=== PATIENT | female | born 1990 | race Caucasian/White ===

== ENCOUNTER 2022-12-11 12:00 | Emergency (ER) | payer MEDICARE, MEDICAID, SELFPAY ==
--- NOTE | 2022-12-11 12:08 | ED.BACK ---
HPI - Back Pain/Injury General Chief Complaint: Back Pain/Injury Stated Complaint: Lower Back Pain Time Seen by Provider: 12/11/22 13:11 Source: patient and RN notes reviewed Mode of arrival: ambulatory Limitations: no limitations History of Present Illness HPI Narrative: 32-year-old female presents with concern for low back pain. He she reports in October she was lifting when she hurt her back. She was seen at urgent care and was given anti-inflammatories and muscle relaxers. Reports she had improvement in the pain, however the pain has returned. She reports or she has been taking anti-inflammatories with little relief. She report she has been seeing a chiropractor, reports however her pain seems worse after she gets adjusted. He denies loss of bowel or bladder function, denies perianal anesthesia, weakness in any extremity. She denies abdominal pain. Reports pain is worsened by certain movements, she can find position of comfort occasionally in bed. She reports last night she had pain that shot down her right leg MD elicited complaint: back pain Related Data Home Medications Medication Instructions Recorded Confirmed clindamycin phosphate 1 % topical 1 applic topical BID 12/11/22 12/11/22 gel doxycycline hyclate 50 mg capsule 50 mg PO DAILY 12/11/22 12/11/22 fluticasone propionate 50 50 mcg intranasal DAILY 12/11/22 12/11/22 mcg/actuation nasal spray,suspension levocetirizine 5 mg tablet 5 mg PO DAILY 12/11/22 12/11/22 Allergies Allergy/AdvReac Type Severity Reaction Status Date / Time amoxicillin Allergy Mild Hives Verified 12/11/22 12:31 Review of Systems Review of Systems: CONSTITUTIONAL: Denies malaise, chills, sweats, or fever. CARDIOVASCULAR: Denies chest pain, palpitations, or edema. RESPIRATORY: Denies cough or dyspnea. GASTROINTESTINAL: Denies abdominal pain, nausea, vomiting, diarrhea, loss of bowel function GENITOURINARY: Denies dysuria, hematuria, frequency, loss of bladder function. SKIN: Denies rash or itching. MUSCULOSKELETAL: Reports central low back pain with pain radiating down the right leg NEUROLOGIC: Denies numbness, weakness, or headache. All systems reviewed & are unremarkable except as noted in HPI and below PMFSH Comments At time of signature, agree with nursing past medical, surgical, social and family history. There is no relevant family history pertinent to the presenting complaint Exam Narrative: GENERAL: Well-appearing, well-nourished, and in no acute distress. HEAD: Normocephalic, atraumatic. EYES: PERRLA and EOMI. NECK: Supple. No lymphadenopathy. CHEST: Clear to auscultation. No respiratory distress. HEART: Regular rate and rhythm. Distal pulses palpable and equal, cap refill <3 seconds ABDOMEN: Soft, nontender, nondistended, normal active bowel sounds, no palpable or pulsatile masses. No CVA tenderness MUSCULOSKELETAL: Normal range of motion and strength in all extremities; 5/5 strength with hip flexion and extension, dorsiflexion and extension, knee flexion and extension, plantar flexion and extension. Normal sensation in dermatomal distributions with sensitivity to light touch and pain. Midline back tenderness to palpation. No paraspinal tenderness. Transfers from sitting to standing. SKIN: Warm, dry, no rash. No ecchymosis, erythema, open wounds to back. NEURO: No focal deficits. Alert and oriented x3. Reflexes intact. Normal gait. PSYCH: Normal mood and affect Course Course Emergency Course: Advised patient to avoid getting adjusted by the chiropractor until she is able to give more definitive imaging, she was instructed to call primary care doctor for an appointment. Patient is aware of diagnosis, understands and agrees to treatment plan. Anticipatory guidance given. Patient agrees to follow-up as directed and is aware of reasons to seek care at the emergency department. Portions of this record may have been created with voice recognition software Level
[2022-12-11 12:13] VITALS: BP 113/74; PULSE 106; RESP 16; TEMP 37.2; O2SAT 99
== END 2022-12-11 13:26 | disposition home or self-care (01) ==
PROVIDERS: Emergency Provider Nurse Practitioner; PCP Family Medicine
DX: M54.50 Low back pain, unspecified (principal); N80.9 Endometriosis, unspecified
CPT/HCPCS: 99203; G0463

== ENCOUNTER 2022-12-28 15:18 | Outpatient (CLI) | payer MEDICARE, MEDICAID, SELFPAY ==
--- NOTE | ~2022-12-28 | XR_ITS ---
XR lumbar spine 2-3V 12/28/2022 15:44 Indication: Low back pain Procedure: 3 views lumbar spine Comparison: No prior studies for comparison. Findings: Vertebral body and disc heights are preserved. No fracture, subluxation or dislocation. No evidence for spondylolisthesis. Pedicles intact. Sacral foramen are symmetric. There is an IUD presen t. Impression: 1: No significant abnormality of the lumbar spine. Reviewed, dictated and finalized at location [] Impression: 1: No significant abnormality of the lumbar spine.
== END 2022-12-28 15:19 | disposition home or self-care (01) ==
PROVIDERS: PCP Family Medicine; Visit Provider Family Medicine
DX: M54.50 Low back pain, unspecified (principal)
CPT/HCPCS: 72100

== ENCOUNTER 2023-03-16 13:03 | Outpatient (CLI) | payer OTHER, SELFPAY ==
[2023-03-16 13:40] LABS: Hematocrit 40.8 % (37.0-47.0); Hemoglobin 13.7 g/dL (12.0-15.0); Mean Corpuscular HGB Conc 33.6 g/dl (32-36); Mean Corpuscular Hemoglobin 30.4 pg (26-34); Mean Corpuscular Volume 90.7 fl (80-100); Mean Platelet Volume 10.7 fl (7.4-10.4); Platelet Count Result 251 k/mm3 (150-375); Red Cell Distribution Width 12.4 % (11.5-14.5); White Blood Count 8.1 K/mm3 (4.5-10.0)
== END 2023-03-16 13:04 | disposition home or self-care (01) ==
PROVIDERS: PCP Family Medicine; Visit Provider Obstetrics & Gynecology
DX: N80.9 Endometriosis, unspecified (principal); Z01.818 Encounter for other preprocedural examination
CPT/HCPCS: 36415; 85027; 86850; 86900; 86901

== ENCOUNTER 2023-03-18 03:16 | Day surgery (SDC) | payer OTHER, SELFPAY ==
[2023-03-09 12:35] VITALS: BMI 23.4
--- NOTE | 2023-03-09 12:41 | PC.NURSE ---
Report to the Outpatient Waiting Room, entrance under the green pavilion located off [facility], at time 6:00 on date 03/18/23. Planned Procedure Time: 7:30. Time changes happen often and if your time is changed the preop area will call you the afternoon before. - You and your visitor will be asked to self-screen and do not enter if you have any COVID symptoms. - A mask is optional within the hospital at this time. Patients may have clear liquids (water, carbonated beverages, clear teas, apple juice) until 3 hours prior to surgery (4:30) with a maximum of 20 ounces. - No food from midnight until time of surgery Take the following medications with a SIP of water the morning of surgery: N/A DO NOT STOP ANY OF YOUR OTHER PRESCRIPTION MEDICATIONS PRIOR TO SURGERY ?EXCEPT THE FOLLOWING Medications to discontinue per physician: N/A Date to take last dose: N/A Please no make-up, nail german, hairspray, perfume, deodorant, or body powder the day of surgery. No jewelry (including any body piercings) or valuables the day of surgery, leave them at home. Please take a shower or bath the night before, or the morning of, surgery with an antibacterial soap. Wear comfortable, loose fitting clothing. - Jewelry must be removed prior to entering the operating room. Rings and piercings that are not removed may be cut off. - The hospital will not accept responsibility for valuables. - Please leave all valuables, including medications, at home the day of surgery. If you are going home after surgery, a licensed driver's education instructor must drive you home. - NO public transportation without another adult if you receive anesthesia. - We recommend that an adult stay with you for 24 hours following discharge. - We also recommend that you do not drive, make important decision, drink alcoholic beverages, or take any drugs that were not prescribed by your health care provider for at least 24 hours after your discharge time. Follow any additional instructions given to you from your surgeon. If you or anyone in your household have experienced Covid symptoms in the past week, please notify your surgeon or the nurse liaison at the phone number below for possible testing. Telephone instructions given to PT - TERRENCE DYE and asked if any additional questions and then verbalized understanding. Patient advised to call surgeon office or pre surgery nurse liaison [phone] if any additional questions.
--- NOTE | 2023-03-17 09:57 | PM.IMHP ---
H&P: HPI History of Present Illness Date/Time: 03/17/23 09:57 33-year-old female presents with complaints of irregular menstrual cycles well as pelvic pain. Has been diagnosed with endometriosis in the past, been on multiple hormonal regimens none of which have helped significantly and her pain and discomfort has been increasing over the past few months, to the point now where she cannot perform her normal daily activities due to the pain. She is bleeding intermittently but this is not a significant issue for her as opposed to the pelvic pain that she has been having. Also she has pain on the right side as well as midline, no specific discomfort on the left. Ultrasound has been performed which reveals no specific abnormalities with an IUD present in the uterine cavity. Chief Complaint: Pelvic pain Review of Systems Review of Systems: All systems reviewed & are unremarkable except as noted in HPI and below PMFSH Past Medical History Medical History Anxiety and depression Endometriosis Ovarian cyst Surgical History Surgical History History of gynecological procedure (10/03/21) mirena iud removal and insertion History of gynecological procedure (04/2012) mirena iud insertion History of laparotomy exploration of pelvis History of tonsillectomy [place] teeth removed Family History Family History Other Depression family hx Social History Social History Years smoked: 1 Smoking status: Former smoker Tobacco type: cigarettes Smoking end date: 07/12/12 Alcohol intake: never Substance use: never Substance use type: does not use Lack of Transportation: No Lack of Food: Sometimes True Current Housing: I Have Housing Concerned About Future Housing: No Difficulty Paying Gas/Electric Bills: No Difficulty Paying for Meds: No Currently Unemployed: No Education: High School Diploma/GED Difficulty w/ Childcare or Family Care: No Living arrangements: with family Additional living arrangements comments: single Occupation/Education: unemployed Additional occupation/education comments: disabled Gender identity (if verbalized by the patient): Female Sexual Orientation (if Verbalized by the Patient): Straight or Heterosexual Spiritual care concerns: No Meds Home Medications and Allergies Home Medications Medication Instructions Recorded Confirmed Type levonorgestrel 21 mcg/24 hours (8 1 device intrauterine ONCE 01/18/23 03/09/23 History yrs) 52 mg intrauterine device (Mirena) Allergies Allergy/AdvReac Type Severity Reaction Status Date / Time amoxicillin Allergy Mild Hives Verified 03/09/23 12:35 Exam Const: General: cooperative, healthy appearing and comfortable Resp: Effort & Inspection: normal respiratory effort Auscultation: clear to auscultation bilaterally Cardio: Rate: regular rate Rhythm: regular rhythm GI: Inspection: normal to inspection Auscultation: normal bowel sounds : External Female Exam: normal external appearance Speculum Exam - Vagina: normal appearance of the vagina Speculum Exam - Cervix: normal appearance of the cervix Bimanual exam- vagina & uterus: Uterine tenderness Bimanual Exam- Adnexa, other: tender (Right tender/left nontender) Assessment and Plan Assessment and plan (1) Pelvic pain: Code(s): R10.2 - Pelvic and perineal pain Status: Acute (2) Endometriosis: Code(s): N80.9 - Endometriosis, unspecified Status: Acute (3) Irregular bleeding: Code(s): N92.6 - Irregular menstruation, unspecified Status: Acute (4) Right adnexal tenderness: Code(s): R10.2 - Pelvic and perineal pain Status: Acute Plan 1. Robot assisted laparoscopic hyster
[2023-03-18] VITALS (10 sets, daily range): BP systolic 104–131; BP diastolic 62–99; PULSE 61–96; RESP 12–18; TEMP 36.3–37.4; O2SAT 97–100
[2023-03-18] MEDS: ACETAMINOPHEN 500 MG TABLET 1000 MG PO (06:11)
[2023-03-18] MEDS: LACTATED RINGERS 1,000 ML 30 ML IV CONT ×2 (06:25→09:09)
[2023-03-18] MEDS: KETOROLAC 15 MG/ML VIAL (*BKC) IV PUSH (06:52)
--- NOTE | 2023-03-18 07:12 | WPDANESEPPF ---
Anes - Initial Pre Proc Eval Procedure: Operation Date: 03/18/23 07:30 Proposed Procedures p Robotic Assisted Total Laparoscopic Hysterectomy with Bilateral Salpingectomy - Maykel Guevara MD Date/Time: 03/18/23 07:12 Surgeon: Maykel Guevara MD Pre Op Diagnosis: pelvic pain, endometriosis Patient Data Age: 33 Gender: F Height: 1.68 m Weight: 64.8 kg Last Vital Signs Temp 37.0 C 03/18/23 06:44 Pulse 83 03/18/23 06:44 Resp 16 03/18/23 06:44 BP 115/65 03/18/23 06:44 Pulse Ox 98 03/18/23 06:44 O2 Del Method Room Air 03/18/23 06:44 Allergies Allergy/AdvReac Type Severity Reaction Status Date / Time amoxicillin Allergy Mild Hives Verified 03/18/23 06:09 Home Medications Medication Instructions Recorded Confirmed Type levonorgestrel 21 mcg/24 hours (8 1 device intrauterine ONCE 01/18/23 03/09/23 History yrs) 52 mg intrauterine device (Mirena) Patient hx anesthesia problems: none Family hx anesthesia problems: none Results Review: All pre-operative results and documents have been reviewed as part of the pre-operative evaluation. [facility] Past Medical History Medical History Anxiety and depression Endometriosis Ovarian cyst Surgical History Surgical History History of gynecological procedure (10/03/21) mirena iud removal and insertion History of gynecological procedure (04/2012) mirena iud insertion History of laparotomy exploration of pelvis History of tonsillectomy [place] teeth removed Family History Family History Other Depression family hx Social History Social History Years smoked: 1 Smoking status: Former smoker Tobacco type: cigarettes Smoking end date: 07/12/12 Alcohol intake: never Substance use: never Substance use type: does not use Lack of Transportation: No Lack of Food: Sometimes True Current Housing: I Have Housing Concerned About Future Housing: No Difficulty Paying Gas/Electric Bills: No Difficulty Paying for Meds: No Currently Unemployed: No Education: High School Diploma/GED Difficulty w/ Childcare or Family Care: No Living arrangements: with family Additional living arrangements comments: single Occupation/Education: unemployed Additional occupation/education comments: disabled Gender identity (if verbalized by the patient): Female Sexual Orientation (if Verbalized by the Patient): Straight or Heterosexual Spiritual care concerns: No Anes - Eval Final PreProcedure Day of Procedure 03/18/23 07:12 Patient weight: normal Heart: regular rate and rhythm Lungs: clear to auscultation Airway: Mallampati scale class II Neurological: alert and oriented Last oral intake: >/= 8 hours ASA classification: II Emergent: no Anesthetic plan: proceed Anesthesia type and monitoring: general ETT and standard monitoring Results Review: All pre-operative results and documents have been reviewed as part of the pre-operative evaluation. Informed Consent: The patient's anesthetic plan and its attendant risks and benefits were discussed with the patient/family/POA. Questions were solicited and answers provided to the satisfaction of the patient/family/POA.
--- NOTE | 2023-03-18 07:23 | WPDHPUPDATE1 ---
History and Physical Update Update Date/Time: 03/18/23 07:23 History and Physical has been reviewed, including an updated exam of the patient. There are NO changes in the patient's condition. Risks, benefits, and alternatives have been discussed and questions answered. Patient agrees to proceed with procedure.
[2023-03-18] MEDS: ceFAZolin 2 GM/D5W 50 ML 2 GM/50 ML BAG IVPB (07:28)
--- NOTE | 2023-03-18 08:47 | P.OP_ITS ---
Procedure Note - Detailed Date of Procedure 03/18/23 Pre-op Diagnosis pelvic pain, endometriosis Post-op Diagnosis Same Procedure Performed 1. Robotic assisted laparoscopic total hysterectomy 2. Right salpingo oophorectomy 3. Left salpingectomy Surgeon Maykel Guevara MD Anesthesia General Findings 1. Uterus enlarged and globular and hypervascular consistent with adenomyosis 2. Right lateral wall endometriosis Description of Procedure Patient prepped and draped in usual manner for this procedure. Cervical instruments were placed for uterine mobility throughout the case. Attention was then placed to the abdomen all the trocars were placed under direct v isualization. De Juan Manuel system was attached and instruments were placed again under direct visualization. Surgeon moved to the console and findings were noted as above. Right infant 0 pelvic ligament was cauterized and cut to release the ovary from the pelvic sidewall. Left mesial salpinx was then cauterized and cut and the left tube was removed separately. Right infundibulopelvic ligament was cauterized and cut to release the ovary from the uterus, and round ligament bilaterally cauterized and cut and bladder flap developed without difficulty. Uterine vessels were then skeletonized and c auterized and cut. Anterior colpotomy incision was made this was carried circumferentially to release the cervix from the vagina and the uterus right tube and ovary were then delivered into the vagina. V lock suture was then used to approximate the vaginal cuff from the right angle to the midline and then from the left angle midline with good approximation hemostasis noted. There was no significant bleeding the patient was then sent to recovery room in stable condition after trocars removed and incisions approximated using 4-0 Monocryl. Estimated Blood Loss 100 Drains No Packing No Pathology Yes Complications No immediate complications Condition Stable Disposition PACU [facility] Billing Surgery - Charge Forward: Surgery Billing
[2023-03-18] MEDS: fentaNYL CITRATE INJ (*CRX) 100 MCG/2 ML VIAL 25 MCG IV PUSH ×8 (09:19→10:17)
--- NOTE | 2023-03-18 10:40 | ADMGEN ---
This patient, Peg Eastman, was admitted to OB 2nd Floor Room 289-00. Patient/family oriented to hospital policies and general routines including ID bracelet, bed and alarms, visiting hours, pain management, procedures, bathroom and other care routines, personal items, smoking policy, room service/diet, and visiting hours. Information on how to activate the Rapid Response Team has been discussed. Patient/Family are encouraged to report perceived risks to care and to ask questions if they do not understand what they are told or what they should do.
[2023-03-18] MEDS: KETOROLAC 30 MG/ML VIAL (*BKC) IV PUSH (11:03)
[2023-03-18] MEDS: DEXTROSE 5%/0.45% SOD CHL 1,000 ML 125 ML IV CONT (11:03)
[2023-03-18] MEDS: HYDROcodone/acetaminophen (*CRX) 5-325 MG TABLET 1 TAB PO (12:33)
[2023-03-18] MEDS: HYDROcodone/acetaminophen (*CRX) 10-325 MG TABLET 1 TAB PO ×2 (15:35→19:38)
[2023-03-18] MEDS: SIMETHICONE 80 MG TAB.CHEW PO ×2 (16:46→19:38)
[2023-03-18] MEDS: IBUPROFEN 600 MG TABLET PO (18:09)
[2023-03-18] MEDS: DOCUSATE SODIUM 100 MG CAPSULE PO (19:52)
[2023-03-19 01:00] VITALS: BP 95/56; PULSE 73; RESP 14; TEMP 37.1; O2SAT 95
[2023-03-19 05:20] VITALS: BP 93/55; PULSE 72; RESP 14; TEMP 37; O2SAT 99
[2023-03-19] MEDS: HYDROcodone/acetaminophen (*CRX) 10-325 MG TABLET 1 TAB PO ×2 (05:27→10:00)
[2023-03-19] MEDS: IBUPROFEN 600 MG TABLET PO (05:30)
[2023-03-19 05:42] LABS: Basophils Percent Auto 0.2 % (0.2-1.2); Hematocrit 35.3 % (37.0-47.0); Hemoglobin 11.9 g/dL (12.0-15.0); Immature Granulocyte Absolute 0.07 K/mm3 (0.00-0.031); Immature Granulocyte Percent A 0.5 % (0-0.5); Lymphocytes Absolute Auto 1.62 K/mm3 (0.9-3.2); Lymphocytes Percent Auto 10.4 % (18.3-44.2); Mean Corpuscular HGB Conc 33.7 g/dl (32-36); Mean Corpuscular Hemoglobin 30.5 pg (26-34); Mean Corpuscular Volume 90.5 fl (80-100); Mean Platelet Volume 11.3 fl (7.4-10.4); Monocytes Percent Auto 6.6 % (2.6-8.5); Neutrophils Absolute Auto 12.8 K/mm3 (1.3-6.7); Neutrophils Percent Auto 82.3 % (45.5-73.1); Platelet Count Result 208 k/mm3 (150-375); Red Cell Distribution Width 12.4 % (11.5-14.5); White Blood Count 15.5 K/mm3 (4.5-10.0)
[2023-03-19 08:05] VITALS: BP 104/54; PULSE 80; RESP 16; TEMP 37.3; O2SAT 98
--- NOTE | 2023-03-19 08:56 | WPDANESPN ---
Anes - Prog Note Post-Op Date/Time: 03/19/23 08:56 Cardiovascular status: other (hypotensive) Respiratory status: normal Airway patency: baseline Mental status: baseline Post-Op hydration status: normal Vital Signs: Last Vital Signs Temp 37.0 C 03/19/23 05:20 Pulse 72 03/19/23 05:20 Resp 14 03/19/23 05:20 BP 93/55 L 03/19/23 05:20 Pulse Ox 99 03/19/23 05:20 O2 Del Method Room Air 03/19/23 01:00 O2 Flow Rate 8 03/18/23 09:25 Pain Score (VAS): 2/10 Laboratory Tests 03/19/23 05:25 03/19/23 05:25 WBC 15.5 H RBC 3.90 L Hgb 11.9 L Hct 35.3 L MCV 90.5 MCH 30.5 MCHC 33.7 RDW 12.4 Plt Count 208 MPV 11.3 H Immature Gran % (Auto) 0.5 Neut % (Auto) 82.3 H Lymph % (Auto) 10.4 L [place] % (Auto) 6.6 Eos % (Auto) 0.0 Baso % (Auto) 0.2 Lymph # (Auto) 1.62 [place] # (Auto) 1.0 H Eos # (Auto) 0.0 Baso # (Auto) 0.0 Abs Immat Gran (auto) 0.07 H Absolute Neuts (auto) 12.8 H Absolute Nucleated RBC 0.0 Nucleated RBC % 0.0 Post-procedural complaints: none Patient Feedback: Patient satisfied with anesthetic care.
== END 2023-03-19 10:53 | disposition home or self-care (01) ==
LOC: ANHSURGERY 05:57 → ANHOB2 13:04
PROVIDERS: PCP Family Medicine; Visit Provider Obstetrics & Gynecology
PROC: (CPT 58571; principal; 2023-03-18 07:30)
DX: N80.351 Endometriosis of the right pelvic sidewall, unspecified depth (principal); N80.00 Endometriosis of the uterus, unspecified; R10.2 Pelvic and perineal pain; N80.03 Adenomyosis of the uterus; N92.6 Irregular menstruation, unspecified; Z87.891 Personal history of nicotine dependence
CPT/HCPCS: 58571; S2900; 36415; 85025; 88307; 99199; A9270; J0690; J1100; J1170; J1885; J2250; J2405; J2704; J3010; J7030; J7120

== ENCOUNTER 2023-03-25 17:36 | Emergency (ER) | payer OTHER, SELFPAY ==
[2023-03-25 17:47] VITALS: BP 117/71; PULSE 93; RESP 16; TEMP 37.3; O2SAT 100
[2023-03-25 17:48] VITALS: BP 117/71; PULSE 93; RESP 16; TEMP 37.3; O2SAT 100
--- NOTE | 2023-03-25 17:52 | ED.SKABFB ---
HPI - Skin/Abscess/Foreign Bdy General Chief complaint: Skin/Abscess/Foreign Body Stated complaint: skin irritation -stomach Time Seen by Provider: 03/25/23 17:37 Source: patient Mode of arrival: ambulatory Limitations: no limitations History of Present Illness HPI narrative: patient is a 33-year-old female who presents with redness and blisters around for surgical sites. Patient states she had hysterectomy 1 week ago and sites were closed with Dermabond. Patient started noticing redness on Wednesday and blisters appeared on Wednesday. Patient has called surgeon office and was told to try to pick off blue continues cortisone cream along with Neosporin. patient states redness has only grown and is also very tender to touch. Reports small amounts of drainage from wounds Related Data Allergies Allergy/AdvReac Type Severity Reaction Status Date / Time amoxicillin Allergy Mild Hives Verified 03/18/23 06:09 Review of Systems Review of Systems: All systems reviewed & are unremarkable except as noted in HPI and below Constitutional: Constitutional: Denies body ache(s), Denies chills, Denies fatigue, Denies fever(s), Denies headache(s), Denies malaise and Denies weakness Eyes: Eyes: Denies blurry vision, Denies irritation and Denies loss of vision ENT: Denies otalgia, Denies headache(s), Denies nasal discharge, Denies sinus pain and Denies sore throat Cardiovascular: Cardiovascular: Denies chest pain, Denies irregular heart rhythm and Denies dyspnea Respiratory: Respiratory: Denies dyspnea Gastrointestinal: Gastrointestinal: Denies abdominal pain, Denies melena, Denies hematochezia, Denies diarrhea, Denies nausea and Denies vomiting Musculoskeletal: Musculoskeletal: Denies back pain, Denies myalgias and Denies arthralgias Integumentary/Breasts: Skin/Breast: Denies pruritus, Reports erythema, Denies rash and Reports wounds Neurologic: Denies headache(s), Denies loss of vision and Denies weakness Psychiatric: Psychiatric: Reports no additional psychiatric complaints Endocrine: Endocrine: Denies fatigue PMFSH Past Medical History Medical History Anxiety and depression Endometriosis Ovarian cyst Surgical History Surgical History History of gynecological procedure (10/03/21) mirena iud removal and insertion History of gynecological procedure (04/2012) mirena iud insertion History of laparotomy exploration of pelvis History of tonsillectomy [place] teeth removed Family History Family History Other Depression family hx Social History Social History Years smoked: 1 Smoking status: Former smoker Tobacco type: cigarettes Smoking end date: 07/12/12 Alcohol intake: never Substance use: never Substance use type: does not use Lack of Transportation: No Lack of Food: Sometimes True Current Housing: I Have Housing Concerned About Future Housing: No Difficulty Paying Gas/Electric Bills: No Difficulty Paying for Meds: No Currently Unemployed: No Education: High School Diploma/GED Difficulty w/ Childcare or Family Care: No Living arrangements: with family Additional living arrangements comments: single Occupation/Education: unemployed Additional occupation/education comments: disabled Gender identity (if verbalized by the patient): Female Sexual Orientation (if Verbalized by the Patient): Straight or Heterosexual Spiritual care concerns: No Comments At time of signature, agree with nursing past medical, surgical, social and family history. There is no relevant family history pertinent to the presenting complaint. Exam Const: General: cooperative, healthy appearing, comfortable, no acute distress and well nourished Nutritional Appearance: well nourished
== END 2023-03-25 18:17 | disposition home or self-care (01) ==
PROVIDERS: Emergency Provider Nurse Practitioner Family; PCP Family Medicine
DX: L03.311 Cellulitis of abdominal wall (principal); T78.40XA Allergy, unspecified, initial encounter; Z87.891 Personal history of nicotine dependence
CPT/HCPCS: 99213; G0463

== ENCOUNTER 2023-06-14 12:42 | Emergency (ER) | payer MEDICARE, MEDICAID, SELFPAY ==
[2023-06-14 13:12] VITALS: BP 131/86; PULSE 107; RESP 16; TEMP 37.4; O2SAT 100
--- NOTE | 2023-06-14 13:18 | ED.EXTPRO ---
HPI - Extremity Problem General Chief complaint: Extremity Problem,Nontraumatic Stated complaint: Left Finger Pai[place] Time Seen by Provider: 06/14/23 13:15 Source: patient Mode of arrival: ambulatory Limitations: no limitations History of Present Illness HPI Narrative: Peg is a 33-year-old female patient presenting to the clinic today with complaints of left finger itching and irritation. She reports she is having itching and irritation to the left 3rd and 5th fingers. Reports that she recently got her nails done at the nail salon and this has happened before. No known injury. She denies any fever or chills. States that the finger is itching so much that it is hurting after scratching Related Data Allergies Allergy/AdvReac Type Severity Reaction Status Date / Time amoxicillin Allergy Mild Hives Verified 05/03/23 13:48 dermabond Allergy Intermediate Hives Uncoded 05/03/23 13:48 Review of Systems Review of Systems: Pertinent positives per HPI. Patient denies any fever, chills, headache, visual changes, dizziness, cough, runny nose, sore throat, shortness of breath, chest pain, palpitations, nausea, vomiting, diarrhea, constipation, abdominal pain, or any urinary issues. FOR[facility]LY [facility] Past Medical History Medical History Anxiety and depression Endometriosis Ovarian cyst Surgical History Surgical History History of gynecological procedure (10/03/21) mirena iud removal and insertion History of gynecological procedure (04/2012) mirena iud insertion History of laparotomy exploration of pelvis History of robot-assisted laparoscopic hysterectomy (03/18/23) Robotic assisted laparoscopic total hysterectomy / Right salpingo oophorectomy / Left salpingectomy History of tonsillectomy [place] teeth removed Family History Family History Other Depression family hx Social History Social History Years smoked: 1 Smoking status: Former smoker Tobacco type: cigarettes Smoking end date: 07/12/12 Alcohol intake: never Substance use: never Substance use type: does not use Lack of Transportation: No Lack of Food: Sometimes True Current Housing: I Have Housing Concerned About Future Housing: No Difficulty Paying Gas/Electric Bills: No Difficulty Paying for Meds: No Currently Unemployed: No Education: High School Diploma/GED Difficulty w/ Childcare or Family Care: No Living arrangements: with family Additional living arrangements comments: single Occupation/Education: unemployed Additional occupation/education comments: disabled Gender identity (if verbalized by the patient): Female Sexual Orientation (if Verbalized by the Patient): Straight or Heterosexual Spiritual care concerns: No Comments At the time of my signature, I reviewed and agree with the nursing past medical, surgical, social, and family history. There is no relevant family history pertinent to the patient complaint. Exam Narrative: General: Well-developed, well nourished, in no apparent distress Head: Normocephalic, atraumatic. Cardio: Regular rate and rhythm, s1 and s2 normal, no murmur appreciated. Resp: Clear to auscultation bilaterally, no rhonchi, rales, wheezing or rubs. Integumentary: [place], warm, and dry, intact without lesion, redness, swelling, with all blisters noted to the left distal 5th finger and the distal middle finger around the nails Course Course Emergency Course: Portions of this record may have been created with voice recognition software. Level of Care: Express Care Visit Vital Signs Vital signs: Vital Signs Temperature 37.4 C 06/14/23 13:12 Pulse Rate 107 H 06/14/23 13:12 Respiratory Rate 16 06/14/23 13:12 Blood Pressure 131/86
== END 2023-06-14 13:25 | disposition home or self-care (01) ==
PROVIDERS: Emergency Provider Nurse Practitioner Family; PCP Family Medicine
DX: L24.3 Irritant contact dermatitis due to cosmetics (principal); Z87.891 Personal history of nicotine dependence; N80.9 Endometriosis, unspecified
CPT/HCPCS: 99213; G0463